=== PATIENT | female | born 2005 | race Caucasian/White ===

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

== ENCOUNTER 2023-02-13 12:33 | Outpatient (REF) | payer MEDICAID, SELFPAY | END 2023-02-13 12:34 | disposition home or self-care (01) | LOC: HO.LAB 12:33 | PROVIDERS: PCP Registered Nurse; Visit Provider Registered Nurse | DX: Z00.00 Encounter for general adult medical examination without abnormal findings (principal); Z11.1 Encounter for screening for respiratory tuberculosis | CPT/HCPCS: 36415; 86481 ==

== ENCOUNTER 2023-03-06 19:14 | Emergency (ER) | payer MEDICAID, SELFPAY ==
--- NOTE | ~2023-03-06 | US_ITS ---
EXAM: Pelvic Ultrasound CLINICAL INDICATION: Right lower quadrant pain COMPARISON: CT abdomen pelvis March 07, 2023 TECHNIQUE: The pelvis was evaluated using transabdominal and transvaginal imaging. Color Doppler imaging and spectral analysis of the bilateral ovaries was also performed. FINDINGS: The uterus measures 8.0 x 3.2 x 4.1 cm in longitudinal by AP by transverse dimension. The endometrial stripe is not thickened and measures 0.9 cm. The left ovary measures approximately 2.9 x 2.0 x 1.8 cm and is normal. The right ovary measures approximately 2.7 x 2.4 x 3.0 cm and contains a simple appearing 1.8 cm cyst. Spectral analysis reveals normal arterial and venous waveforms in the bilateral ovaries. There is no free fluid in the pelvis. US/US pelvic and transvaginal IMPRESSION: 1. Normal thickness endometrial stripe. 2. 1.8 cm simple appearing right ovarian cyst.
--- NOTE | ~2023-03-06 | US_ITS ---
EXAM: Pelvic Ultrasound CLINICAL INDICATION: Right lower quadrant pain COMPARISON: CT abdomen pelvis March 07, 2023 TECHNIQUE: The pelvis was evaluated using transabdominal and transvaginal imaging. Color Doppler imaging and spectral analysis of the bilateral ovaries was also performed. FINDINGS: The uterus measures 8.0 x 3.2 x 4.1 cm in longitudinal by AP by transverse dimension. The endometrial stripe is not thickened and measures 0.9 cm. The left ovary measures approximately 2.9 x 2.0 x 1.8 cm and is normal. The right ovary measures approximately 2.7 x 2.4 x 3.0 cm and contains a simple appearing 1.8 cm cyst. Spectral analysis reveals normal arterial and venous waveforms in the bilateral ovaries. There is no free fluid in the pelvis. US/US pelvic ovarian doppler IMPRESSION: 1. Normal thickness endometrial stripe. 2. 1.8 cm simple appearing right ovarian cyst.
--- NOTE | ~2023-03-06 | CT_ITS ---
EXAMINATION: CT ABDOMEN AND PELVIS WITH CONTRAST CLINICAL INFORMATION: Quadrant pain COMPARISON: CT abdomen pelvis April 13, 2022 TECHNIQUE: Multidetector volumetric images were obtained from the superior aspect of the liver through the pubic symphysis following administration 85 mL of Omnipaque 350 intravenous contrast. Sagittal and coronal reformatted images were obtained on the technologist's workstation. This CT examination was performed using dose optimization techniques as appropriate, variously including the following: *Automated exposure control *Adjustment of mA and/or kV according to patient size (this includes techniques or standardized protocols for targeted exams where dose is matched to indication/reason for exam; i.e. extremities or head) *Use of iterative reconstruction technique DLP: 313 mGy-cm FINDINGS: Visualized lung bases are well aerated. The liver demonstrates normal size, contour and attenuation. The gallbladder is normal in appearance. The pancreas, spleen and adrenal glands are unremarkable. Symmetrically enhancing kidneys. There is no hydronephrosis of either kidney. Normal caliber loops of small and large bowel. Moderate colonic stool burden. The appendix is not clearly visualized, however, there are no focal inflammatory changes noted within the right lower abdomen. Normal caliber abdominal aorta. No retroperitoneal lymphadenopathy. The bladder is normal in appearance. Unremarkable CT appearance of the uterus. 1.8 cm right adnexal cyst. No gross free pelvic fluid. No inguinal lymphadenopathy. No acute osseous abnormality. CT/CT abdomen pelvis w IV con IMPRESSION: 1. Moderate colonic stool burden suggesting constipation. 2. 1.8 cm right adnexal cyst. Fleischner guidelines were followed.
[2023-03-06 19:25] VITALS: BP 117/66; PULSE 98; RESP 18; TEMP 36.6; O2SAT 99; BMI 22.0
--- NOTE | 2023-03-06 19:25 | ED_ITS ---
HPI - General Adult General Chief complaint: Abdominal Pain Stated complaint: Lower Abdominal Pain Time Seen by Provider: 03/07/23 06:44 Source: patient Mode of arrival: ambulatory Limitations: no limitations History of Present Illness HPI narrative: 17 year old female with no ignificant past medical history presents to the ED today with a complaint of right lower abdominal pain/ pressure with radiation to the back x3 days. Reports relief upon ambulation and exacerbation of symptoms with lying down on her right side. She also endorses increased vaginal discharge however states this is normal for her, not a new finding. Does not follow with OBGYN. Denies concern for STD. Denies fever, chills, CP, SOB, N/V/D, constipation, hematuria, dysuria. Related Data Previous Rx's Medication Instructions Recorded docusate sodium 100 mg capsule 100 mg PO BID #20 caps 03/07/23 (Colace) polyethylene glycol 3350 17 17 g PO BID PRN constipation #238 03/07/23 gram/dose oral powder (Miralax) grams sennosides 8.6 mg tablet (senna) 8.6 mg PO BEDTIME #14 tabs 03/07/23 Allergies Allergy/AdvReac Type Severity Reaction Status Date / Time No Known Allergies Allergy Unverified 03/06/23 19:27 Review of Systems Review of Systems: Constitutional : No Weight loss, No Fever, No Chills ENT/Mouth :? No sore throat, No Rhinorrhea Eyes: No Swelling, No Redness Cardiovascular : No Chest Pain, No SOB, NoEdema Respiratory : No Cough, No Sputum, No Wheezing Gastrointestinal : no Nausea, no Vomiting, no Diarrhea, + abdominal Pain, No Hematochezia, No Melena Genitourinary : No Dysuria, No Urinary Frequency, No Hematuria, No Urgency Musculoskeletal : No joint pain, No Myalgias, No Joint Swelling, +back pain Skin : No Skin Lesions, No rash Neuro : No Weakness, No Numbness, No Dizziness, No Headache All other systems reviewed and are negative. Yes all other systems are reviewed and are negative [facility] Past Medical History Attestation statement: The following information was validated with the patient. Source: old records reviewed and nursing notes reviewed Social History Social History Advance Directives: No Advance Directives Information Provided: Yes Physical Exam ED Vital Signs: Vital Signs - 24 hr 03/06/23 19:25 03/07/23 02:22 03/07/23 06:58 Temperature 97.9 F 98.1 F 98.7 F Pulse Rate 98 102 H 75 Respiratory Rate 18 16 17 Blood Pressure 117/66 116/66 108/60 Pulse Oximetry 99 98 100 Oxygen Delivery Method Room Air Room Air Room Air BMI result Body Mass Index 22.0 vss Appearance: Alert.? Oriented X3.? No acute distress.?Appears uncomfortable, lying on her left side in the bed. Head: Normocephalic, atraumatic, no step-offs or deformities Eyes: Pupils equal, round and reactive to light.? CVS: Normal heart rate and rhythm.? Pulses normal.? Respiratory: No respiratory distress.? Breath sounds normal.? Abdomen: Soft, nondistended, point tenderness to the right lower quadrant without rebound tenderness or guarding. Negative rovsing sign. Normoactive BS throughout. Skin: Skin warm and dry.? Normal skin color.? Normal skin turgor.? Extremities: No lower extremity edema.? No calf ttp. 5/5 strength to bilateral upper and lower extremities Back: No midline tenderness, no C-spine tenderness, full range of motion, no CVA tenderness bilaterally Neuro: Oriented X 3.? No motor deficit.? No sensory deficit. CN 2-12 intact Course Course Course Narrative: This is a rapid medical exam: Additional HPI, ROS, PE not included below will be deferred to primary provider. Patient is a 17-year-old female presenting to the emergency department with lower abdominal pain. States pain is worse when getting up from a laying position, feels pressure when sitting, pain resolves with standing. Denies nausea, vomiting, diarrhea, constipation. Denies fevers. Denies unprotected intercourse or concern for STIs. Abdomen soft, mildly TTP LUQ and bilateral lower quadrants. Plan: UA, labs Reevaluation(s) Reevaluation #1: CBC without leukocytosis. CMP with any electrolyte abnormalities requiring intervention. Beta hCG negative. CT of the abdomen pelvis with IV contrast showing colonic stool burden suggesting constipation and a 1.8 cm right adnexal cyst. This is consistent with patient's presentation. However given patient's age and evidence of cyst on CT will order Doppler ultrasound of the right ovary to rule out torsion. Time: 08:30 Reevaluation #2: Doppler ultrasound showing normal venous and arterial flow to flow to the ovaries bilaterally with a 1.8 cm simple appearing right ovarian cyst consistent with CT of the abdomen/pelvis, normal thickness endometrial stripe. On re- evaluation patient is feeling better, declines pain medications at this time. Vital signs are stable. I feel comfortable to discharge the patient with close OBGYN outpatient follow-up. Will provide patient with OBGYN referral. Educated patient on diagnosis and treatment plan, answered all question, patient verbalizes understanding. At this time patient will be discharged home, advised to return with new or worsening symptoms. Educated on worrisome signs and symptoms and when to return. At this time I feel comfortable discharge home. Time: 09:14 Medications Administered Discontinued Medications Generic Name Dose Route Start Last Admin Trade Name Freq PRN Reason Stop Dose Admin Iohexol 100 ml 03/07/23 07:36 03/07/23 07:36 Iohexol 350 Mg/Ml 100 Ml Infus..Btl IV 03/07/23 07:37 85 ml ONCE ONE Administration Medical Decision Making Medical Decision Making [facility] Narrative: 0650 17 yo female with RLQ pain/ pressure, radiation to back x3 days Physical exam significant for soft abd, point tenderness to RLQ, no rebound or guarding, normoactive BS, no CVAT b/l Clinical suspicion for ovarian cyst. Unlikely torsion versus intrauterine versus ectopic given the patient's age and presentation. Will order UA, beta hCG to rule these out. Unlikely appendicitis, cholecystitis, obstruction, acute abdomen based on patient's presentation how ever well order labs and CT of the abdomen/ pelvis. Will also rule out UTI. Unlikely pyelonephritis. No signs of obstructing uropathy or kidney stone. Plan: labs, bhcg, CT abd/pelvis Differential Diagnosis Differential Diagnoses: The differential diagnosis associated with the presentation includes Clinical suspicion for ovarian cyst. Unlikely torsion versus intrauterine versus ectopic given the patient's age and presentation. Will order UA, beta hCG to rule these out. Unlikely appendicitis, cho lecystitis, obstruction, acute abdomen based on patient's presentation however well order labs and CT of the abdomen/ pelvis. Will also rule out UTI. Unlikely pyelonephritis. No signs of obstructing uropathy or kidney stone. Admission/Observation Consideration of admission/observation: Escalation of care including admission/observation considered Not indicated Lab Data MDM Lab Attestation statement: I reviewed the patient's lab results. 03/06/23 20:59 03/06/23 20:59 Labs: Lab Results 03/06/23 03/06/23 03/06/23 Range/Units 20:59 20:59 20:59 WBC 8.5 (4.8-10.8) X10*3/uL RBC 3.86 L (4.20-5.50) X10*6/uL Hgb 11.8 L (12.0-16.0) g/dl Hct 35.2 L (37.0-47.0) % MCV 91.2 (80.0-98.0) fL MCH 30.6 (27.0-33.0) pg MCHC 33.5 (31.0-35.0) g/dl RDW 11.7 (11.0-16.0) % Plt Count 360 (160-400) X10*3/uL MPV 9.3 L (9.4-12.3) fL Immature Gran % (Auto) 0.2 (0.0-0.4) % Neut % (Auto) 46.1 (45-73) % Lymph % (Auto) 39.1 (20-40) % [place] % (Auto) 10.3 (2-11) % Eos % (Auto) 3.8 (0-4) % Baso % (Auto) 0.5 (0-2) % Lymph # (Auto) 3.3 (1.2-4.9) X10*3/uL [place] # (Auto) 0.9 (0.1-1.2) X10*3/uL Eos # (Auto) 0.3 (0.0-0.4) X10*3/uL Baso # (Auto) 0.0 (0.0-0.2) X10*3/uL Abs Immat Gran (auto) 0.02 (0.00-0.03) X10*3/uL Absolute Neuts (auto) 3.9 (2.0-8.3) x10*3/uL Absolute Nucleated RBC 0.000 (0.0-0.012) X10*3/uL Nucleated RBC % (auto) 0.0 (0.0-0.2) /100WBC Sodium 140 (135-145) mmol/L Potassium 3.9 (3.3-5.1) mmol/L Chloride 107 (96-108) mmol/L Carbon Dioxide 20 L (22-29) mmol/L Anion Gap 17 (12-20) BUN 11 (9-16) mg/dL Creatinine 0.64 (0.5-1.4) mg/dL Estim Creat Clear Calc 101.5 Estimated GFR > 60 Random Glucose 80 (60-115) mg/dL Calcium 9.5 (8.4-10.2) mg/dL Total Bilirubin 0.3 (0.0-1.0) mg/dL AST 17 (5-31) U/L ALT 10 (0-31) U/L Alkaline Phosphatase 78 (39-117) U/L Total Protein 7.6 (6.5-8.0) g/dL Albumin 4.3 (3.5-5.0) g/dL Beta HCG, Quant < 2 mIU/mL Urine Color Urine Appearance Urine pH (5.0-9.0) Ur Specific [place] (1.005-1.025) Urine Protein (Neg-Trace) mg/dL Urine Glucose (UA) (Negative) mg/dL Urine Ketones (Negative) mg/dL Urine Blood (Negative) Urine Nitrite (Negative) Ur Leukocyte Esterase (Negative) 03/06/23 Range/Units 20:59 WBC (4.8-10.8) X10*3/uL RBC (4.20-5.50) X10*6/uL Hgb (12.0-16.0) g/dl Hct (37.0-47.0) % MCV (80.0-98.0) fL MCH (27.0-33.0) pg MCHC (31.0-35.0) g/dl RDW (11.0-16.0) % Plt Count (160-400) X10*3/uL MPV (9.4-12.3) fL Immature Gran % (Auto) (0.0-0.4) % Neut % (Auto) (45-73) % Lymph % (Auto) (20-40) % [place] % (Auto) (2-11) % Eos % (Auto) (0-4) % Baso % (Auto) (0-2) % Lymph # (Auto) (1.2-4.9) X10*3/uL [place] # (Auto) (0.1-1.2) X10*3/uL Eos # (Auto) (0.0-0.4) X10*3/uL Baso # (Auto) (0.0-0.2) X10*3/uL Abs Immat Gran (auto) (0.00-0.03) X10*3/uL Absolute Neuts (auto) (2.0-8.3) x10*3/uL Absolute Nucleated RBC (0.0-0.012) X10*3/uL Nucleated RBC % (auto) (0.0-0.2) /100WBC Sodium (135-145) mmol/L Potassium (3.3-5.1) mmol/L Chloride (96-108) mmol/L Carbon Dioxide (22-29) mmol/L Anion Gap (12-20) BUN (9-16) mg/dL Creatinine (0.5-1.4) mg/dL Estim Creat Clear Calc Estimated GFR Random Glucose (60-115) mg/dL Calcium (8.4-10.2) mg/dL Total Bilirubin (0.0-1.0) mg/dL AST (5-31) U/L ALT (0-31) U/L Alkaline Phosphatase (39-117) U/L Total Protein (6.5-8.0) g/dL Albumin (3.5-5.0) g/dL Beta HCG, Quant mIU/mL Urine Color Yellow Urine Appearance Clear Urine pH 8.5 (5.0-9.0) Ur Specific [place] 1.020 (1.005-1.025) Urine Protein Trace (Neg-Trace) mg/dL Urine Glucose (UA) Negative (Negative) mg/dL Urine Ketones Negative (Negative) mg/dL Urine Blood Negative (Negative) Urine Nitrite Negative (Negative) Ur Leukocyte Esterase Negative (Negative) Independent Interpretation I performed an independent interpretation of an: Ultrasound (US/US pelvic and transvaginal IMPRESSION: 1. Normal thickness endometrial stripe. 2. 1.8 cm si mple appearing right ovarian cyst.) and CT Scan (CT/CT abdomen pelvis w IV con IMPRESSION: 1. Moderate colonic stool burden suggesting constipation. 2. 1.8 cm right adnexal cyst. Fleischner guidelines were followed.) Radiology Impression Discussion of test interpretation with radiology: I have reviewed the radiologist's reading. Radiologist Impression: CT abdomen pelvis w IV con IMPRESSION: 1.? Moderate colonic stool burden suggesting constipation. 2.? 1.8 cm right adnexal cyst. US pelvic and transvaginal IMPRESSION: 1.? Normal thickness endometrial stripe. 2.? 1.8 cm simple appearing right ovarian cyst. ? Prescription Management I considered prescription management with: Pain Medication Core Measures AMI core measures followed: Yes Measure exclusions: not indicated Critical Care Time Critical Care Time Critical Care Time: No Discharge Plan Discharge Clinical Impression: Abdominal pain, RLQ, Ovarian cyst, Constipation Patient Disposition: Home, Self-Care Instructions: Ovarian Cyst (ED), Constipation (ED), High Fiber Diet (ED), Acute Abdominal Pain (DC), Heat Pack Application (ED) Additional Instructions: Take your medications as prescribed. If you were prescribed antibiotics today, it is important that you take your medication to their entirety, do not skip any doses, do not finish them early. Follow-up with your primary care provider this week. Please follow-up with OBGYN. Return to the emergency department with new or worsening symptoms. Such as fevers, chills, chest pain, shortness of breath, nausea, vomiting, dizziness, headache, vision changes, lethargy In case of emergency call 911 You can take ibuprofen every 6 hours, Tylenol every 4 hours for pain or discomfort. Do not exceed maximum daily dose as listed on packaging US/US pelvic ovarian doppler IMPRESSION: 1. Normal thickness endometrial stripe. 2. 1.8 cm simple appearing right ovarian cyst. CT/CT abdomen pelvis w IV con IMPRESSION: 1.? Moderate colonic stool burden suggesting constipation. 2.? 1.8 cm right adnexal cyst. ? Fleischner guidelines were followed. Prescriptions: New sennosides [senna] 8.6 mg tablet 8.6 mg PO BEDTIME Qty: 14 0RF docusate sodium [Colace] 100 mg capsule 100 mg PO BID Qty: 20 0RF polyethylene glycol 3350 [Miralax] 17 gram/dose powder 17 g PO BID PRN (Reason: constipation) Qty: 238 0RF Referrals: Mason Ramsey MD [Physician] - 2 days Interventions: ED Discharge Assessment Last Done: 03/07/23 09:27 Discharge Date/Time: 03/07/23 09:28
[2023-03-06 21:05] LABS: MANUAL DIFF FLAG NO
[2023-03-06 21:08] LABS: Appearance Urine Clear; Basophils Percent Auto 0.5 % (0-2); Color Urine Yellow; Eosinophils Absolute Auto 0.3 X10*3/uL (0.0-0.4); Eosinophils Percent Auto 3.8 % (0-4); Glucose Urine UA Negative (Negative); Hematocrit 35.2 % (37.0-47.0); Hemoglobin 11.8 g/dl (12.0-16.0); Imm Gran Abs Auto 0.02 X10*3/uL (0.00-0.03); Imm Gran Pct Auto 0.2 % (0.0-0.4); Leukocyte Esterase Urine Negative (Negative); Lymphocytes Absolute Auto 3.3 X10*3/uL (1.2-4.9); Lymphocytes Percent Auto 39.1 % (20-40); Mean Corpuscular HGB Conc 33.5 g/dl (31.0-35.0); Mean Corpuscular Hemoglobin 30.6 pg (27.0-33.0); Mean Corpuscular Volume 91.2 fL (80.0-98.0); Mean Platelet Volume 9.3 fL (9.4-12.3); Monocytes Absolute Auto 0.9 X10*3/uL (0.1-1.2); Monocytes Percent Auto 10.3 % (2-11); Neutrophils Absolute Auto 3.9 x10*3/uL (2.0-8.3); Neutrophils Percent Auto 46.1 % (45-73); Nitrite Urine Negative (Negative); PH 8.5 (5.0-9.0); Platelet Count 360 X10*3/uL (160-400); Red Blood Count 3.86 X10*6/uL (4.20-5.50); Red Cell Distribution Width 11.7 % (11.0-16.0); Urine Blood Negative (Negative); Urine Ketones Negative (Negative); Urine Protein Trace mg/dL (Neg-Trace); White Blood Count 8.5 X10*3/uL (4.8-10.8)
[2023-03-06 21:22] LABS: Alanine Aminotransferase 10 U/L (0-31); Albumin Level 4.3 g/dL (3.5-5.0); Alkaline Phosphatase 78 U/L (39-117); Anion Gap 17 (12-20); Aspartate Amino Transferase 17 U/L (5-31); Bilirubin Total 0.3 mg/dL (0.0-1.0); Blood Urea Nitrogen 11 mg/dL (9-16); Calcium 9.5 mg/dL (8.4-10.2); Carbon Dioxide 20 mmol/L (22-29); Chloride 107 mmol/L (96-108); Creatinine Clr Calc Pharmacy 101.5; Estimated Glomerular Filt Rate > 60; Glucose Random 80 mg/dL (60-115); Potassium 3.9 mmol/L (3.3-5.1); Sodium 140 mmol/L (135-145); Total Protein 7.6 g/dL (6.5-8.0)
[2023-03-06 21:29] LABS: HCG Quantitative < 2 mIU/mL
[2023-03-07 02:22] VITALS: BP 116/66; PULSE 102; RESP 16; TEMP 36.7; O2SAT 98
[2023-03-07 06:58] VITALS: BP 108/60; PULSE 75; RESP 17; TEMP 37.1; O2SAT 100
[2023-03-07] MEDS: iohexoL 350 MG/ML 100 ML INFUS..BTL IV (07:36)
== END 2023-03-07 09:28 | disposition home or self-care (01) ==
PROVIDERS: Registered Nurse Emergency; Emergency Provider Student in an Organized Health Care Education/Training Program
DX: R10.31 Right lower quadrant pain (principal); N83.201 Unspecified ovarian cyst, right side; K59.00 Constipation, unspecified
CPT/HCPCS: 36415; 74177; 76830; 76856; 80053; 81003; 84702; 85025; 93975; 99284; Q9967

== ENCOUNTER 2023-03-19 09:29 | Outpatient (REF) | payer MEDICAID, SELFPAY ==
[2023-03-20 05:24] LABS: CT PCR NOT DETECTED (Not Detect.); NG PCR NOT DETECTED (Not Detect.)
[2023-03-20 11:49] LABS: BV Int Neg Control Negative (Negative); BV Int Pos Control Positive (Positive)
== END 2023-03-19 09:30 | disposition home or self-care (01) ==
LOC: HO.LAB 09:29
PROVIDERS: Visit Provider Advanced Practice Midwife
DX: R10.9 Unspecified abdominal pain (principal); N89.8 Other specified noninflammatory disorders of vagina; K59.00 Constipation, unspecified; N83.201 Unspecified ovarian cyst, right side
CPT/HCPCS: 0353U; 81003; 81025; 87480; 87510; 87660; 99204

== ENCOUNTER 2023-03-19 09:29 | Outpatient (AMB) | payer MEDICAID, SELFPAY ==
[2023-03-19 09:35] VITALS: BP 120/72; BMI 21.5
--- NOTE | 2023-03-19 09:35 | A.OFFVIS_ITS ---
Intake Vital Signs 03/19/23 09:35 Height 5 ft Weight 110 lb BMI 21.5 BP 120/72 Intake Visit Reasons: Er follow up Intake Note: The patient agreed to use of a biomedical engineering supervisor during this encounter. Scribed for THAD Deleon by Skye Roberts, biomedical engineering supervisor, on 03/19/2023 at 9:50am EST. Head Gauge Unit Operator Required: No Information Interpreted: non-clinical & clinical Allergies No Known Allergies Allergy (Unverified 03/19/23 09:37) Is last menstrual period known: Yes Last menstrual period: 02/26/23 Post menopausal: No Patient : No HPI HPI Comments History of Present Illness Details She is here for ED follow up from 03/06/23 with complaint of right lower abdominal pain/ pressure with radiation to the back x3 days. Reports pelvic pain has worsen. Admits vaginal discharge. Denies urinary symptoms. Hx of constipation. Admits constipation recently, has only defecated 2x in 1 and 1/2 weeks and has lessen food intake to 2 meals a day. Diet doesn't include fiber. Currently sexually active and occasionally use condoms. LMP 02/26/23 with no irregular bleeding. 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 Stopped Depo over a year ago. Reports pain and discomfort during intercourse. [facility] Medical History (Updated 03/19/23 @ 10:02 by Skye Roberts) Right ovarian cyst Family History (Updated 03/19/23 @ 09:41 by DANIEL Cheney) Mother Hypertension Paternal Aunt History of breast cancer Social History (Updated 03/19/23 @ 09:46 by DANIEL Cheney) Sexual orientation: Straight/Heterosexual Gender identity: Female Female Reproductive History Menstrual Duration of menses: 3-5 days Date of last menstrual period: 02/26/23 control method: none Total pregnancies: 0 Number of Living Children: 0 Physical Exam Vital Signs: Last Vital Signs BP 120/72 03/19/23 09:35 BMI result Body Mass Index 21.5 Const General: cooperative, healthy appearing, comfortable, no acute distress, well developed, alert and awake GI Other: right sided abdominal and bladder tenderness. Other: tense with exam General: Yes bladder normal to palpation External Female Exam: normal external appearance and normal appearance of the urethra Speculum Exam - Vagina: normal appearance of the vagina, normal palpation and normal vaginal discharge Speculum Exam - Cervix: normal appearance of the cervix and normal palpation Bimanual exam- vagina & uterus: normal bimanual exam, normal palpation, bladder normal to palpation and normal palpation Bimanual Exam- Adnexa, other: normal adnexae and no masses Results AMB Urinalysis, Automated UA Leukoctes 0 Madhu/uL Last Edit by DANIEL Cheney on 03/19/23 10:24 UA Nitrite Negative Last Edit by DANIEL Cheney on 03/19/23 10:24 UA Urobilinogen 0 mg/dL Last Edit by DANIEL Cheney on 03/19/23 10:2 4 UA Protein 0.5 mg/dL Last Edit by DANIEL Cheney on 03/19/23 10:24 UA pH 5.5 Last Edit by DANIEL Cheney on 03/19/23 10:24 UA Blood 0.5 Emeka/uL Last Edit by DANIEL Cheney on 03/19/23 10:24 UA Specific [place] 1.030 Last Edit by DANIEL Cheney on 03/19/23 10:24 UA Ketone Negative Last Edit by DANIEL Cheney on 03/19/23 10:24 UA Bilirubin 0 mg/dL Last Edit by DANIEL Cheney on 03/19/23 10:24 UA Glucose 0 mg/dL Last Edit by DANIEL Cheney on 03/19/23 10:24 AMB Test Urine AMB Test Urine Negative Last Edit by DANIEL Cheney on 03/19/23 10:24 Results Reviewed Results Reviewed: Laboratory Last Values Urine pH (Auto) 5.5 03/19/23 10:12 Specific [place] (Auto) 1.030 03/19/23 10:12 Urine Protein (Auto) 0.5 mg/dL 03/19/23 10:12 Glucose (UA)(Auto) 0 mg/dL 03/19/23 10:12 Urine Ketones (Auto) Negative 03/19/23 10:12 Urine Blood (Auto) 0.5 Emeka/uL 03/19/23 10:12 Urine Nitrite (Auto) Negative 03/19/23 10:12 Urine Bilirubin (Auto) 0 mg/dL 03/19/23 10:12 Urine Urobilinogen (Auto) 0 mg/dL 03/19/23 10:12 Leukocyte Esterase (Auto) 0 Madhu/uL 03/19/23 10:12 Tst Clinic Negative 03/19/23 10:12 Assessment & Plan Assessment & Plan (1) Constipation: Code(s): K59.00 - Constipation, unspecified Plan: Contact PCP regarding constipation Rx. Encouraged to include more fiber in diet. (2) Abdominal pain: Code(s): R10.9 - Unspecified abdominal pain Plan: If pain and symptoms persist report to ED. (3) Vaginal discharge: Code(s): N89.8 - Other specified noninflammatory disorders of vagina Plan: BV testing and GC/CT panel done today. Await results and treat accordingly. Encouraged to use condoms for STD and prevention. (4) Right ovarian cyst: Code(s): N83.201 - Unspecified ovarian cyst, right side Plan: Pelvic US ordered for ovarian cyst. Follow up for results. All of her questions and concerns were addressed to the best of my ability and shared decision making. She is agreeable to plan of care. Orders: Orders US pelvic and transvaginal Today N83.209 - Unspecified ovarian cyst, unspecified side Bacterial Vaginosis Panel Today N89.8 - Other specified noninflammatory disorders of vagina, R10.9 - Unspecified abdominal pain CT NG by PCR Today N89.8 - Other specified noninflammatory disorders of vagina, R10.9 - Unspecified abdominal pain AMB Urinalysis Automated Today R10.9 - Unspecified abdominal pain AMB HCG Urine Test Today R10.9 - Unspecified abdominal pain Coding Level of Care Code New Pt Level 4 (48413) Diagnoses Constipation K59.00 Abdominal pain R10.9 Vaginal discharge N89.8 Right ovarian cyst N83.201
== END 2023-03-19 10:17 | disposition home or self-care (01) ==
LOC: HO.HWS 09:29
PROVIDERS: Visit Provider Advanced Practice Midwife
DX: K59.00 Constipation, unspecified (principal); R10.9 Unspecified abdominal pain; N89.8 Other specified noninflammatory disorders of vagina; N83.201 Unspecified ovarian cyst, right side
CPT/HCPCS: 99204

== ENCOUNTER 2023-03-19 10:12 | Outpatient (REF) | payer MEDICAID, SELFPAY | END 2023-03-19 10:13 | disposition home or self-care (01) | LOC: HO.LNP 10:12 | PROVIDERS: Visit Provider Advanced Practice Midwife | DX: Z13.89 Encounter for screening for other disorder (principal) ==

== ENCOUNTER 2023-03-27 12:49 | Outpatient (REF) | payer MEDICAID, SELFPAY ==
--- NOTE | ~2023-03-27 | US_ITS ---
EXAMINATION: US PELVIS CLINICAL INFORMATION: History of ovarian cyst, last menstrual period 03/24/2023. COMPARISON: None available. TECHNIQUE: Ultrasound of the pelvis is performed using both transabdominal and transvaginal transducers along with Doppler. Transvaginal imaging is performed due to inadequate visualization transabdominally. FINDINGS: The uterus is anteverted, heterogeneous and measures 7.4 x 3.3 x 4.0 cm. No discrete fibroids are identified. Endometrial thickness is 0.2 cm. No significant free fluid. Right ovary measures 2.3 x 1.6 x 1.8 cm, volume 3.5 mL. Left ovary measures 1.8 x 2.2 x 2.0 cm, volume 4.0 mL. Bilateral ovaries are unremarkable. US/US pelvic and transvaginal IMPRESSION: 1. Heterogeneous uterus. No discrete fibroids. 2. Endometrial thickness is 0.2 cm. 3. Unremarkable bilateral ovaries. Previously identified right ovarian cyst is not visualized today.
== END 2023-03-27 12:50 | disposition home or self-care (01) ==
LOC: HO.HMGCX 12:49
PROVIDERS: PCP Registered Nurse; Visit Provider Advanced Practice Midwife
DX: N83.209 Unspecified ovarian cyst, unspecified side (principal)
CPT/HCPCS: 76830; 76856

== ENCOUNTER 2023-04-30 15:00 | Outpatient (AMB) | payer MEDICAID, SELFPAY ==
[2023-04-30 15:12] VITALS: BP 102/66; BMI 21.5
--- NOTE | 2023-04-30 15:12 | MHC.OFFVIS ---
Intake Vital Signs 04/30/23 15:12 Height 5 ft Weight 110 lb BMI 21.5 BP 102/66 Intake Visit Reasons: Ultrasound follow up Intake Note: The patient agreed to use of a medical office professional instructor during this encounter. Scribed for THAD Deleon by Skye Roberts medical office professional instructor, on 04/30/2023 at 3:28 pm EST. Allergies No Known Allergies Allergy (Verified 04/30/23 15:13) Is last menstrual period known: Yes Last menstrual period: 04/24/23 HPI HPI Comments History of Present Illness Details She is here to discuss US results regarding right ovarian cyst and lower pelvic pain. History of constipation treated, her pain has since resolved. Reports right breast tenderness/lump especially before menses and the area felt different. [facility] Medical History (Updated 04/30/23 @ 15:43 by Skye Roberts) Fullness of breast Breast tenderness Right ovarian cyst Family History Mother Hypertension Paternal Aunt History of breast cancer Social History Sexual orientation: Straight/Heterosexual Gender identity: Female Female Reproductive History Menstrual Duration of menses: 3-5 days Date of last menstrual period: 04/24/23 control method: none Physical Exam Vital Signs: Last Vital Signs BP 102/66 04/30/23 15:12 BMI result Body Mass Index 21.5 Const General: cooperative, healthy appearing, comfortable, no acute distress, well developed, alert and awake Chest Other: right breast apex tenderness, abdul and firmer at the apex in area of pt. concerns. Chest palpation & inspection: normal inspection of the chest Breast/axilla inspection: normal inspection of the breasts and normal inspection of the axillae Breast/axilla palpation: normal palpation of the breasts and normal palpation of the axillae Results Reviewed Results Reviewed: EXAMINATION: US PELVIS CLINICAL INFORMATION: History of ovarian cyst, last menstrual period 03/24/2023. COMPARISON: None available. TECHNIQUE: Ultrasound of the pelvis is performed using both transabdominal and transvaginal transducers along with Doppler. Transvaginal imaging is performed due to inadequate visualization transabdominally. FINDINGS: The uterus is anteverted, heterogeneous and measures 7.4 x 3.3 x 4.0 cm. No discrete fibroids are identified. Endometrial thickness is 0.2 cm. No significant free fluid. Right ovary measures 2.3 x 1.6 x 1.8 cm, volume 3.5 mL. Left ovary measures 1.8 x 2.2 x 2.0 cm, volume 4.0 mL. Bilateral ovaries are unremarkable. US/US pelvic and transvaginal IMPRESSION: 1. Heterogeneous uterus. No discrete fibroids. 2. Endometrial thickness is 0.2 cm. 3. Unremarkable bilateral ovaries. Previously identified right ovarian cyst is not visualized today. Assessment & Plan Assessment & Plan (1) Encounter to discuss test results: Code(s): Z71.2 - Person consulting for explanation of examination or test findings Plan: Discussed: US findings of: 1. Heterogeneous uterus. No discrete fibroids. 2. Endometrial thickness is 0.2 cm. 3. Unremarkable bilateral ovaries. Previously identified right ovarian cyst is not visualized today. All of her questions and concerns were addressed to the best of my ability and shared decision making. She is agreeable to plan of care. (2) Breast tenderness: Code(s): N64.4 - Mastodynia Plan: If experience increased pain or nipple discharge contact office. US schedules. Follow up for results. (3) Fullness of breast: Code(s): N64.89 - Other specified disorders of breast Orders: Orders US breast RT complete Today N64.4 - Mastodynia, N64.89 - Other specified disorders of breast Coding Level of Care Code Est Pt Level 3 (30056) Diagnoses Encounter to discuss test results Z71.2 Breast tenderness N64.4 Fullness of breast N64.89
== END 2023-04-30 15:33 | disposition home or self-care (01) ==
PROVIDERS: Visit Provider Advanced Practice Midwife
DX: Z71.2 Person consulting for explanation of examination or test findings (principal); N64.4 Mastodynia; N64.89 Other specified disorders of breast
CPT/HCPCS: 99213

== ENCOUNTER → 2023-04-30 15:00 | Outpatient (BNVA) | payer MEDICAID, SELFPAY | PROVIDERS: Visit Provider Advanced Practice Midwife | DX: Z71.2 Person consulting for explanation of examination or test findings (principal); N64.4 Mastodynia; N64.89 Other specified disorders of breast | CPT/HCPCS: 99212 ==

== ENCOUNTER 2023-06-19 11:55 | Outpatient (REF) | payer MEDICAID, SELFPAY ==
[2023-06-19 14:19] LABS: MANUAL DIFF FLAG NO
[2023-06-19 14:31] LABS: Basophils Percent Auto 0.3 % (0-2); Eosinophils Absolute Auto 0.3 X10*3/uL (0.0-0.4); Eosinophils Percent Auto 3.6 % (0-4); Hematocrit 37.9 % (37.0-47.0); Hemoglobin 12.9 g/dl (12.0-16.0); Imm Gran Abs Auto 0.02 X10*3/uL (0.00-0.03); Imm Gran Pct Auto 0.3 % (0.0-0.4); Lymphocytes Absolute Auto 3.1 X10*3/uL (1.2-4.9); Lymphocytes Percent Auto 40.5 % (20-40); Mean Corpuscular Hemoglobin 30.3 pg (27.0-33.0); Mean Platelet Volume 9.9 fL (9.4-12.3); Monocytes Absolute Auto 0.7 X10*3/uL (0.1-1.2); Neutrophils Absolute Auto 3.5 x10*3/uL (2.0-8.3); Neutrophils Percent Auto 46.3 % (45-73); Platelet Count 451 X10*3/uL (160-400); Red Blood Count 4.26 X10*6/uL (4.20-5.50); Red Cell Distribution Width 11.4 % (11.0-16.0); White Blood Count 7.6 X10*3/uL (4.8-10.8)
[2023-06-19 14:48] LABS: Cholesterol 160 mg/dL (<200); HDL Cholesterol 48 mg/dL (>40); LDL Cholesterol Calculated 101 mg/dL (<100); Triglycerides 57 mg/dL (<150)
[2023-06-19 15:05] LABS: TSH reflex Free T4 0.59 uIU/mL (0.32-4.0)
== END 2023-06-19 11:56 | disposition home or self-care (01) ==
LOC: HO.CHCLDS 11:55
PROVIDERS: Visit Provider Registered Nurse
DX: Z00.00 Encounter for general adult medical examination without abnormal findings (principal)
CPT/HCPCS: 36415; 80061; 82306; 84443; 85025

== ENCOUNTER 2024-02-08 10:13 | Outpatient (REF) | payer MEDICAID, SELFPAY ==
[2024-02-10 19:24] LABS: TS Negative Control Passed; TS Panel A 0; TS Panel B 0; TS Positive Control Passed; TSpotTB Negative (Negative)
== END 2024-02-08 10:14 | disposition home or self-care (01) ==
LOC: HO.LAB 10:13
PROVIDERS: PCP Registered Nurse; Visit Provider Registered Nurse
DX: Z11.1 Encounter for screening for respiratory tuberculosis (principal)
CPT/HCPCS: 36415; 86481

== ENCOUNTER 2024-06-27 08:16 | Outpatient (REF) | payer MEDICAID, SELFPAY ==
[2024-06-27 10:37] LABS: Influenza A PCR NEGATIVE (Negative); Influenza B PCR NEGATIVE (Negative); Resp Syncy Virus RNA Qual PCR NEGATIVE (Negative); SARS COV2 PCR INHOUSE NEGATIVE (Negative)
== END 2024-06-27 08:17 | disposition home or self-care (01) ==
LOC: HO.LNP 08:16
PROVIDERS: PCP Registered Nurse; Visit Provider Physician Assistant
DX: J06.9 Acute upper respiratory infection, unspecified (principal); R09.89 Other specified symptoms and signs involving the circulatory and respiratory systems
CPT/HCPCS: 0241U; 99202

== ENCOUNTER 2024-06-27 08:16 | Outpatient (AMB) | payer OTHER, SELFPAY ==
[2024-06-27 08:20] VITALS: BP 124/76; PULSE 94; TEMP 36.4; O2SAT 97; BMI 24.5
--- NOTE | 2024-06-27 08:20 | AM.OFFWIN_ITS ---
Intake Vital Signs 06/27/24 08:20 Height 5 ft Weight 125 lb 8 oz BMI 24.5 BP 124/76 Blood Pressure Location Rt brachial Position Sitting Pulse 94 Pulse Source Pulse Oximeter Temp 97.6 F Temp Source Temporal Artery Scan Pulse Oximetry (%) 97 Oxygen Delivery Method Room Air Intake Visit Reasons: FISCAL CLERK-cough, chest tight, sob Intake Note: Gm is a 18 year old female who presents to the office today for a cough, chest tightness, sinus pressure, X3 days. Patient Tobacco Use Status: Never used Tobacco Allergies No Known Allergies Allergy (Verified 06/27/24 08:23) HPI HPI Comments History of Present Illness Details Patient is a 18-year-old female complaining of 3 days of a productive cough with yellow and orange sputum, headaches, sinus pain, shortness of breath, wheezing and chest tightness. She states she is eating and drinking normally. She has not tried any [id number] medications to make herself feel better. She did not test for COVID, she has no history of asthma or COPD. She tells me her nephews were both just diagnosed with RSV and rhinovirus. [facility] Medical History (Updated 06/27/24 @ 08:48 by Loraine Patel PA-C) Fullness of breast Breast tenderness Right ovarian cyst Family History Mother Hypertension Paternal Aunt History of breast cancer Social History Patient Tobacco Use Status: Never used Tobacco Sexual orientation: Straight/Heterosexual Gender identity: Female Review of Systems Const All systems reviewed & are unremarkable except as noted in HPI and below Physical Exam Vital Signs: Last Vital Signs Temp 97.6 F 06/27/24 08:20 Pulse 94 06/27/24 08:20 BP 124/76 06/27/24 08:20 Pulse Ox 97 06/27/24 08:20 Oxygen Delivery Method Room Air 06/27/24 08:20 BMI result Body Mass Index 24.5 Const General: cooperative, healthy appearing, comfortable and no acute distress Orientation/consciousness: patient oriented x3 Limitations: no limitations HEENT Head: Yes normal to inspection Ears: hearing grossly normal bilaterally, external ears normal and TM's normal bilaterally General nose exam: Normal external nose present, Normal nares present and No nasal discharge present Face and sinus: Yes normal facial exam and Yes sinuses nontender Mouth: Normal oral and palatal mucosa present and moist mucous membranes Throat: Yes tonsils normal, Yes uvula midline and Yes posterior oropharynx abnormal (Erythema) Eyes General: appearance normal, both eyes and all related structures Neck Neck: Yes normal visual inspection Resp Effort & Inspection: normal respiratory effort, able to speak in complete sentences, no respiratory distress, not tachypneic, no tripod positioning and no use of accessory muscles Auscultation: clear to auscultation bilaterally Cardio Rate: regular rate Rhythm: regular rhythm Heart sounds: normal S1 and S2 Skin General skin exam: no rashes or lesions noted Neuro General: patient oriented x3 Extrem General: Yes normal to inspection and Yes no clubbing, cyanosis or edema Assessment & Plan Assessment & Plan (1) URI (upper respiratory infection): Code(s): J06.9 - Acute upper respiratory infection, unspecified Qualifiers: URI type: unspecified URI Qualified Code(s): J06.9 - Acute upper respiratory infection, unspecified Plan: Vital signs are stable, patient well-appearing, we did test for flu COVID and RSV today. I also sent Tessalon cough drops to her pharmacy and recommended she start taking a decongestant [id number] and other medications to treat her symptoms. I told her we would write a work note for today and if any of these 3 viruses come back positive that she would need to stay out for the rest of the week and we would adjust her note accordingly. Plan See above Medications: New benzonatate 200 mg PO TID PRN 14 caps 0RF cough Coding Level of Care Code New Pt Level 3 (98723) Diagnoses Upper respiratory tract infection, unspecified type J06.9 URI type: unspecified URI
== END 2024-06-27 08:49 | disposition home or self-care (01) ==
PROVIDERS: PCP Registered Nurse; Visit Provider Physician Assistant
DX: J06.9 Acute upper respiratory infection, unspecified (principal)